=== PATIENT | female | born 1945 | race Caucasian/White ===

== ENCOUNTER 2019-05-30 13:39 | Emergency (ER) | payer MEDICARE ==
[~2019-05-30] VITALS: Ht 165.1 cm; Wt 81.6 kg
--- NOTE | 2019-05-30 13:45 | NUR ---
ED Nurse Note: PAtient brought in by ambulance RA [id number] due to s/p mechanical ground fall and fell on her right shoulder. patient c/o pain 10/10 radiating to her right upper arm. patient reports she tripped and fell, denies any LOC and head trauma. patient is alert awake x4 ambulatory with assistance at this time.
--- NOTE | 2019-05-30 13:50 | Emergency Room Report ---
History of Present Illness General Source: Patient, EMS Present Illness HPI Patient is a 74-year-old female who presented after increased right shoulder and right knee pain after a fall. Patient a prior history of bilateral knee replacements. She reports having tripped and fallen sidewalk. She denies loss of consciousness. She reports having pain to the right shoulder as well as to the right knee. She had been ambulatory after the accident. Injury occurred approximately 10 minutes prior to arrival. She reports having previously taken Percocet without any problems with states she has nausea with [place]. Allergies: Coded Allergies: IODINE (Verified Allergy, Unknown, 05/30/19) Patient History Past Medical History: see triage record, HTN Past Surgical History: other - knee replacement surgery Reviewed Nursing Documentation: PMH: Agreed; PSxH: Agreed Review of Systems All Other Systems: negative except mentioned in HPI Physical Exam Sp02 EP Interpretation: reviewed, normal General Appearance: normal inspection, well appearing, no apparent distress, alert, GCS 15 Head: atraumatic ENT: normal ENT inspection, hearing grossly normal, normal voice Neck: normal inspection, supple, no bony tend, limited range of motion Respiratory: normal inspection, lungs clear, normal breath sounds, no respiratory distress, no retraction, no wheezing Cardiovascular #1: regular rate, rhythm, no edema Gastrointestinal: normal inspection, normal bowel sounds, non tender, soft, no guarding, no hernia Genitourinary: no CVA tenderness Musculoskeletal: other - tenderness to right shoulder, tender - right knee minimal swelling and bruising Neurologic: normal inspection, alert, oriented x3, responsive, system engineer III-XII nml as tested, speech normal Psychiatric: normal inspection, judgement/insight normal, mood/affect normal Skin: normal color, other - bruising to right knee Medical Decision Making Diagnostic Impression: Primary Impression: Fall Additional Impression: Right humeral fracture ER Course Patient presented after fall. Differential diagnosis include was not limited to AC separation, clavicle fracture, humerus fracture, shoulder dislocation among others. X-ray imaging of the right shoulder 4 views read by radiology showed fracture of proximal humerus as well as midshaft humerus. X-ray imaging of the right knee 4 views interpreted by radiology showed normal bony alignment without evident fracture. Patient was given morphine for pain as well as Percocet. Patient was noted to have some mild improvement in discomfort and was placed in a sugar tong splint and a sling.Post procedure x-ray showed improved alignment. Patient is noted to have normal hand function after splinting. Patient was given prescription for pain medication. She is advised to follow-up with orthopedics for recheck and definitive management Status: improved Disposition: HOME, SELF-CARE Condition: Stable Scripts Ibuprofen* (MOTRIN*) 600 Mg Tablet 600 MG ORAL Q8H PRN for For Pain, #30 TAB 0 Refills Prov: Nikolay Guillen MD 05/30/19 Oxycodone/Acetaminophen 5-325* (PERCOCET 5-325 MG TABLET*) 1 Each Tablet 1 TAB ORAL Q4H PRN for For Pain, #20 TAB 0 Refills Prov: Nikolay Guillen MD 05/30/19 Nikolay Guillen MD May 30, 2019 13:50
--- NOTE | 2019-05-30 13:50 | NUR ---
Note undone in EDM - 05/30/19 at 1355 by FERNANDEZ ED Nurse Note: PT WALKED IN TO ER TODAY FROM HOME. AOX4. PT C/O RIGHT SIDED RIB/CHEST PAIN AND RIGHT SHOULDER PAIN, 10/10 X 2 DAYS AGO WHEN SHE FELL. PT STATES SHE LANDED ON HER RIGHT KNEE AND ALSO HIT THE RIGHT SIDE OF HER RIB/CHEST, RIGHT SHOULDER, AND RIGHT SIDE OF FACE. PT PRESENTS WITH MULTIPLE ABRASIONS TO RIGHT SIDE OF FACE ALONG WITH BRUISING AROUND ORBIT. PT ALSO PRESENTS WITH SWELLING TO UPPER LIP. NO OBVIOUS INJURY OR BRUISING TO CHEST/RIB. GAIT STEADY. PT DENIES DIZZINESS, NAUSEA, OR VOMITING. PT DENIES LOC.
--- NOTE | 2019-05-30 13:58 | NUR ---
ED Nurse Note: patient denies allergy to acetaminophen and hydrocodone. patient reporst allergy iodine contrast materals.
[2019-05-30] MEDS ORDERED: oxyCODONE HCL/Acetaminophen 5/325mg ORAL ONE (14:00)
[2019-05-30] MEDS ORDERED: Morphine Sulfate 2mg/ml Inj(IV/IM USE ONLY) IM ONE (14:30)
--- NOTE | 2019-05-30 14:31 | Diagnostic Imaging Report ---
EXAM: XR Right Knee, 3 views CLINICAL HISTORY: PAIN TECHNIQUE: Three views of the right knee. COMPARISON: No relevant prior studies available. FINDINGS: Bones/joints: Status post total knee arthroplasty. No acute fracture. No dislocation. Soft tissues: Unremarkable. IMPRESSION: No fracture or dislocation post-arthroplasty
--- NOTE | 2019-05-30 14:33 | Diagnostic Imaging Report ---
EXAM: XR Right Shoulder Complete, 2 or More Views CLINICAL HISTORY: PAIN TECHNIQUE: Two or more views of the right shoulder. COMPARISON: No relevant prior studies available. FINDINGS: Bones/joints: Comminuted right humerus fracture. The distal fracture is through the mid shaft. The proximal fracture is through the proximal shaft with some extension to the surgical neck. Glenohumeral and acromioclavicular joints are normally aligned. Generalized osteopenia. Soft tissues: Unremarkable. IMPRESSION: Comminuted right humerus fracture.
[2019-05-30 15:34] VITALS: BP 93/62
[2019-05-30] MEDS ORDERED: IBUPROFEN600 MG ORAL (15:34)
[2019-05-30] MEDS ORDERED: PERCOCET 5-3251 EACH ORAL (15:34)
[2019-05-30 15:54] VITALS: BP 101/74
[2019-05-30 15:55] VITALS: BP 101/74
--- NOTE | 2019-05-30 15:55 | NUR ---
ER DISCHARGE NOTE: Patient is cleared to be discharged per ERMD, pt is aox4, on room air, with stable vital signs. pt was given dc and prescription instructions, pt was able to verbalize understanding, pt id band removed without complications. pt is able to ambulate with steady gait. pt took all belongings.
--- NOTE | 2019-05-30 16:50 | Diagnostic Imaging Report ---
EXAM: XR Right Humerus, 2 or More Views CLINICAL HISTORY: PAIN TECHNIQUE: Frontal and lateral views of the right humerus. COMPARISON: 05/30/19 at 1403 FINDINGS: Comminuted proximal right humerus fracture again noted. There is decreased medial displacement and angulation compared to prior exam. IMPRESSION: Improved alignment of comminuted right humerus fracture.
== END 2019-05-30 15:55 | disposition home or self-care (01) ==
LOC: EDBD 13:39 → EMR 13:50
DX: S42.301A Unspecified fracture of shaft of humerus, right arm, initial encounter for closed fracture (principal); M25.562 Pain in left knee; W01.0XXA Fall on same level from slipping, tripping and stumbling without subsequent striking against object, initial encounter; Y92.9 Unspecified place or not applicable; Z91.041 Radiographic dye allergy status; I10 Essential (primary) hypertension
CPT/HCPCS: 29105; 73030; 73060; 73562; 96372; 99284; J2270